=== PATIENT | male | born 1955 | race Caucasian/White ===

== ENCOUNTER 2018-12-15 07:13 | Observation (INO) | payer MEDICARE, OTHER ==
[2018-12-15] MEDS ORDERED: Sodium Chloride 0.9% 2.5 ML Syringe FLUSH PRN (07:34)
[2018-12-15] MEDS ORDERED: Sodium Chloride 0.9% 10 ML Syringe FLUSH PRN (07:34)
[2018-12-15] MEDS ORDERED: Sodium Chloride 0.9% 10 ML SDV IV PRN (07:34)
--- NOTE | 2018-12-15 07:55 | EDM.PDOC ---
ED HPI GENERAL MEDICAL PROBLEM - General Chief Complaint: General Stated Complaint: VISION BLURRY, BLOOD PRESSURE ISSUES Time Seen by Provider: 12/15/18 07:18 Source of Information: Reports: Patient History Limitations: Reports: No Limitations - History of Present Illness INITIAL COMMENTS - FREE TEXT/NARRATIVE: History of present illness: []Patient woke up this morning with double vision. He has had some blurry vision since he started metoprolol this month and states worsening. He feels weakness in both his upper arms and states he generally feels unwell and "not right". He denies any trauma, nausea, vomiting, fevers, chills, chest pain or shortness of breath. Patient has not had these symptoms in the past and states he has never had a EIA or stroke. Review of systems: As per history of present illness and below otherwise all systems reviewed and negative. Past medical history: As per history of present illness and as reviewed below otherwise noncontributory. Surgical history: As per history of present illness and as reviewed below otherwise noncontributory. Social history: No reported history of drug or alcohol abuse. Family history: As per history of present illness and as reviewed below otherwise noncontributory. Physical exam: General: Well developed, well nourished in NAD HEENT: Atraumatic, normocephalic, pupils reactive, negative for conjunctival pallor or scleral icterus, mucous membranes moist, throat clear, neck supple, nontender, trachea midline. Lungs: Clear to auscultation, breath sounds equal bilaterally, chest nontender. Heart: S1S2, regular, negative for clicks, rubs, or JVD. Abdomen: NABS, Soft, nondistended, nontender. Negative for masses or hepatosplenomegaly. Negative for costovertebral tenderness. Pelvis: Stable nontender. Genitourinary: Deferred. Rectal: Deferred. Extremities: Atraumatic, negative for cords or calf pain. Neurovascular unremarkable. Neuro: Awake, alert, oriented. patient has a right sixth nerve palsy, Cerebellum unremarkable. Motor and sensory unremarkable throughout. Exam nonfocal. Skin:warm and dry Diagnostics: CT head, CBC, EKG, chemistry, troponin, TSH Therapeutics: None ED Course: Dr. Flood who recommended that he be admitted for an MRI and observation Impression: Right sixth nerve palsy-unknown etiology Prescriptions: None Plan: Admit to hospitalist service for further workup Definitive disposition and diagnosis as appropriate pending reevaluation and review of above. - Related Data Allergies Allergy/AdvReac Type Severity Reaction Status Date / Time No Known Allergies Allergy Verified 12/15/18 09:36 Home Meds: Home Meds Aspirin 81 mg PO BEDTIME 12/15/18 [History] Metoprolol Succinate [Toprol XL] 25 mg PO BEDTIME 12/15/18 [History] Quinapril [Accupril] 20 mg PO BEDTIME 12/15/18 [History] Simvastatin [Zocor] 40 mg PO BEDTIME 12/15/18 [History] Past Medical History HEENT History: Reports: None Cardiovascular History: Reports: High Cholesterol, Hypertension Respiratory History: Reports: None Gastrointestinal History: Reports: None Genitourinary History: Reports: None Musculoskeletal History: Reports: None Neurological History: Reports: None Psychiatric History: Reports: None Endocrine/Metabolic History: Reports: None Hematologic History: Reports: None Immunologic History: Reports: None Oncologic (Cancer) History: Reports: None Dermatologic History: Reports: None - Infectious Disease History Infectious Disease History: Reports: Chicken Pox - Past Surgical History Head Surgeries/Procedures: Reports: None Social & Family History - Tobacco Use Smoking Status *Q: Current Every Day Smoker Years of Tobacco use: 47 Packs/Tins Daily: 0.3 - Caffeine Use Caffeine Use: Reports: Coffee - Recreational Drug Use Recreational Drug Use: No ED ROS GENERAL - Review of Systems Review Of Systems: See Below ED EXAM, GENERAL - Physical Exam Exam: See Below Course - Vital Signs Last Recorded V/S: Last Vital Signs Temp 97.4 F 12/15/18 09:33 Pulse 67 12/15/18 09:33 Resp 16 12/15/18 09:33 BP 141/86 H 12/15/18 09:33 Pulse Ox 97 12/15/18 10:16 - Orders/Labs/Meds Orders: Active Orders 24 hr Category Date Time Status Patient Status [ADT] Stat ADT 12/15/18 08:29 Active Assess Neurological Status [RC] ASDIRECTED Care 12/15/18 07:34 Active EKG Documentation Completion [RC] STAT Care 12/15/18 07:34 Active Height and Weight [RC] UPON Care 12/15/18 07:34 Active Initiate Acute Stroke Protocol [RC] STAT Care 12/15/18 07:34 Active NIH Stroke Scale [RC] ASDIRECTED Care 12/15/18 07:34 Active Nursing Bedside Swallow Screen [RC] ASDIRECTED Care 12/15/18 07:34 Active Oxygen Therapy [RC] ASDIRECTED Care 12/15/18 07:34 Active Stroke Education, General [] Click to Edit Care 12/15/18 07:34 Active Sodium Chloride 0.9% [Normal Saline] Med 12/15/18 07:34 Active 10 ml IV ASDIRECTED PRN Sodium Chloride 0.9% [Saline Flush] Med 12/15/18 07:34 Active 10 ml FLUSH ASDIRECTED PRN Sodium Chloride 0.9% [Saline Flush] Med 12/15/18 07:34 Active 2.5 ml FLUSH ASDIRECTED PRN Peripheral IV Insertion Adult [OM.PC] Stat Oth 12/15/18 07:34 Ordered Peripheral IV Insertion Adult [OM.PC] Stat Oth 12/15/18 07:34 Ordered Medication Orders Acetaminophen (Tylenol) 650 mg PO Q4H PRN PRN Reason: Pain (Mild 1-3)/fever Atorvastatin Calcium (Lipitor) 40 mg PO BEDTIME RAYNA Morphine Sulfate (Morphine) 2 mg IVPUSH Q2H PRN PRN Reason: Pain (severe 7-10) Stop: 12/16/18 09:16 Ondansetron HCl (Zofran Odt) 4 mg PO Q4H PRN PRN Reason: nausea, able to take PO Ondansetron HCl (Zofran) 4 mg IVPUSH Q4H PRN PRN Reason: Nausea Sodium Chloride (Saline Flush) 10 ml FLUSH ASDIRECTED PRN PRN Reason: Keep Vein Open Sodium Chloride (Saline Flush) 2.5 ml FLUSH ASDIRECTED PRN PRN Reason: Keep Vein Open Sodium Chloride (Normal Saline) 10 ml IV ASDIRECTED PRN PRN Reason: IV Use Labs: Laboratory Tests 12/15/18 12/15/18 12/15/18 Range/Units 07:58 07:58 07:58 WBC 8.73 (4.0-11.0) K/uL RBC 5.54 (4.50-5.90) M/uL Hgb 16.6 (13.0-17.0) g/dL Hct 49.4 (38.0-50.0) % MCV 89.2 (80.0-98.0) fL MCH 30.0 (27.0-32.0) pg MCHC 33.6 (31.0-37.0) g/dL RDW Std Deviation 46.7 (28.0-62.0) fl RDW Coeff of Yue 14 (11.0-15.0) % Plt Count 189 (150-400) K/uL MPV 11.00 (7.40-12.00) fL Neut % (Auto) 69.2 (48.0-80.0) % Lymph % (Auto) 21.2 (16.0-40.0) % [facility] % (Auto) 8.4 (0.0-15.0) % Eos % (Auto) 1.0 (0.0-7.0) % Baso % (Auto) 0.2 (0.0-1.5) % Neut # (Auto) 6.0 H (1.4-5.7) K/uL Lymph # (Auto) 1.9 (0.6-2.4) K/uL [facility] # (Auto) 0.7 (0.0-0.8) K/uL Eos # (Auto) 0.1 (0.0-0.7) K/uL Baso # (Auto) 0.0 (0.0-0.1) K/uL Nucleated RBC % 0.0 /100WBC Nucleated RBCs # 0 K/uL ESR (0-19) mm/hr INR 0.97 APTT 25.9 (18.6-31.3) SEC Sodium 145 (136-148) mmol/L Potassium 4.2 (3.5-5.1) mmol/L Chloride 109 H (98-107) mmol/L Carbon Dioxide 25.7 (21.0-32.0) mmol/L BUN 16 (7.0-18.0) mg/dL Creatinine 1.3 (0.8-1.3) mg/dL Est Cr Clr Drug Dosing TNP Estimated GFR (MDRD) 55.4 ml/min Glucose 127 H (74-106) mg/dL Hemoglobin A1c (4.5-6.2) % Calcium 8.6 (8.5-10.1) mg/dL Total Bilirubin 0.7 (0.2-1.0) mg/dL AST 17 (15-37) IU/L ALT 26 (14-63) IU/L Alkaline Phosphatase 75 (46-116) U/L Troponin I < 0.050 (0.000-0.056) ng/mL C-Reactive Protein (0.00-0.90) mg/dL Total Protein 7.1 (6.4-8.2) g/dL Albumin 3.7 (3.4-5.0) g/dL Globulin 3.4 (2.6-4.0) g/dL Albumin/Globulin Ratio 1.1 (0.9-1.6) Triglycerides (0-200) mg/dL Cholesterol (50-200) mg/dL LDL Cholesterol, Calc (60-180) mg/dL VLDL Cholesterol (5-55) mg/dL HDL Cholesterol (40-60) mg/dL Cholesterol/HDL Ratio (3.3-6.0) TSH 3rd Generation 3.12 (0.36-3.74) uIU/mL 12/15/18 12/15/18 12/15/18 Range/Units 07:58 07:58 07:58 WBC (4.0-11.0) K/uL RBC (4.50-5.90) M/uL Hgb (13.0-17.0) g/dL Hct (38.0-50.0) % MCV (80.0-98.0) fL MCH (27.0-32.0) pg MCHC (31.0-37.0) g/dL RDW Std Deviation (28.0-62.0) fl RDW Coeff of Yue (11.0-15.0) % Plt Count (150-400) K/uL MPV (7.40-12.00) fL Neut % (Auto) (48.0-80.0) % Lymph % (Auto) (16.0-40.0) % [facility] % (Auto) (0.0-15.0) % Eos % (Auto) (0.0-7.0) % Baso % (Auto) (0.0-1.5) % Neut # (Auto) (1.4-5.7) K/uL Lymph # (Auto) (0.6-2.4) K/uL [facility] # (Auto) (0.0-0.8) K/uL Eos # (Auto) (0.0-0.7) K/uL Baso # (Auto) (0.0-0.1) K/uL Nucleated RBC % /100WBC Nucleated RBCs # K/uL ESR 3 (0-19) mm/hr INR APTT (18.6-31.3) SEC Sodium (136-148) mmol/L Potassium (3.5-5.1) mmol/L Chloride (98-107) mmol/L Carbon Dioxide (21.0-32.0) mmol/L BUN (7.0-18.0) mg/dL Creatinine (0.8-1.3) mg/dL Est Cr Clr Drug Dosing Estimated GFR (MDRD) ml/min Glucose (74-106) mg/dL Hemoglobin A1c 5.9 (4.5-6.2) % Calcium (8.5-10.1) mg/dL Total Bilirubin (0.2-1.0) mg/dL AST (15-37) IU/L ALT (14-63) IU/L Alkaline Phosphatase (46-116) U/L Troponin I (0.000-0.056) ng/mL C-Reactive Protein (0.00-0.90) mg/dL Total Protein (6.4-8.2) g/dL Albumin (3.4-5.0) g/dL Globulin (2.6-4.0) g/dL Albumin/Globulin Ratio (0.9-1.6) Triglycerides 126 (0-200) mg/dL Cholesterol 135 (50-200) mg/dL LDL Cholesterol, Calc 79 (60-180) mg/dL VLDL Cholesterol 25 (5-55) mg/dL HDL Cholesterol 31 L (40-60) mg/dL Cholesterol/HDL Ratio 4.4 (3.3-6.0) TSH 3rd Generation (0.36-3.74) uIU/mL 12/15/18 Range/Units 07:58 WBC (4.0-11.0) K/uL RBC (4.50-5.90) M/uL Hgb (13.0-17.0) g/dL Hct (38.0-50.0) % MCV (80.0-98.0) fL MCH (27.0-32.0) pg MCHC (31.0-37.0) g/dL RDW Std Deviation (28.0-62.0) fl RDW Coeff of Yue (11.0-15.0) % Plt Count (150-400) K/uL MPV (7.40-12.00) fL Neut % (Auto) (48.0-80.0) % Lymph % (Auto) (16.0-40.0) % [facility] % (Auto) (0.0-15.0) % Eos % (Auto) (0.0-7.0) % Baso % (Auto) (0.0-1.5) % Neut # (Auto) (1.4-5.7) K/uL Lymph # (Auto) (0.6-2.4) K/uL [facility] # (Auto) (0.0-0.8) K/uL Eos # (Auto) (0.0-0.7) K/uL Baso # (Auto) (0.0-0.1) K/uL Nucleated RBC % /100WBC Nucleated RBCs # K/uL ESR (0-19) mm/hr INR APTT (18.6-31.3) SEC Sodium (136-148) mmol/L Potassium (3.5-5.1) mmol/L Chloride (98-107) mmol/L Carbon Dioxide (21.0-32.0) mmol/L BUN (7.0-18.0) mg/dL Creatinine (0.8-1.3) mg/dL Est Cr Clr Drug Dosing Estimated GFR (MDRD) ml/min Glucose (74-106) mg/dL Hemoglobin A1c (4.5-6.2) % Calcium (8.5-10.1) mg/dL Total Bilirubin (0.2-1.0) mg/dL AST (15-37) IU/L ALT (14-63) IU/L Alkaline Phosphatase (46-116) U/L Troponin I (0.000-0.056) ng/mL C-Reactive Protein 0.40 (0.00-0.90) mg/dL Total Protein (6.4-8.2) g/dL Albumin (3.4-5.0) g/dL Globulin (2.6-4.0) g/dL Albumin/Globulin Ratio (0.9-1.6) Triglycerides (0-200) mg/dL Cholesterol (50-200) mg/dL LDL Cholesterol, Calc (60-180) mg/dL VLDL Cholesterol (5-55) mg/dL HDL Cholesterol (40-60) mg/dL Cholesterol/HDL Ratio (3.3-6.0) TSH 3rd Generation (0.36-3.74) uIU/mL Meds: Medications Generic Name Dose Route Start Last Admin Trade Name Yancy PRN Reason Stop Dose Admin Acetaminophen 650 mg 12/15/18 09:13 Tylenol PO Q4H PRN Pain (Mild 1-3)/fever Atorvastatin Calcium 40 mg 12/15/18 21:00 Lipitor PO BEDTIME RAYNA Morphine Sulfate 2 mg 12/15/18 09:13 Morphine IVPUSH 12/16/18 09:16 Q2H PRN Pain (severe 7-10) Ondansetron HCl 4 mg 12/15/18 09:13 Zofran Odt PO Q4H PRN nausea, able to take PO Ondansetron HCl 4 mg 12/15/18 09:13 Zofran IVPUSH Q4H PRN Nausea Sodium Chloride 10 ml 12/15/18 07:34 Saline Flush FLUSH ASDIRECTED PRN Keep Vein Open Sodium Chloride 2.5 ml 12/15/18 07:34 Saline Flush FLUSH ASDIRECTED PRN Keep Vein Open Sodium Chloride 10 ml 12/15/18 07:34 Normal Saline IV ASDIRECTED PRN IV Use Discontinued Medications Generic Name Dose Route Start Last Admin Trade Name Yancy PRN Reason Stop Dose Admin Aspirin 325 mg 12/15/18 09:17 12/15/18 09:44 Aspirin PO 12/15/18 09:18 325 mg ONETIME ONE Administration Departure - Departure Time of Disposition: 09:25 Disposition: Refer to Observation Condition: Good Clinical Impression: Double vision with both eyes open - Discharge Information *PRESCRIPTION DRUG MONITORING PROGRAM REVIEWED*: No *COPY OF PRESCRIPTION DRUG MONITORING REPORT IN PATIENT ANN: No - My Orders Last 24 Hours: My Active Orders 12/15/18 07:34 Assess Neurological Status [RC] ASDIRECTED EKG Documentation Completion [RC] STAT Height and Weight [RC] UPON Initiate Acute Stroke Protocol [RC] STAT NIH Stroke Scale [RC] ASDIRECTED Nursing Bedside Swallow Screen [RC] ASDIRECTED Oxygen Therapy [RC] ASDIRECTED Stroke Education, General [RC] Click to Edit Sodium Chloride 0.9% [Normal Saline] 10 ml IV ASDIRECTED PRN Sodium Chloride 0.9% [Saline Flush] 10 ml FLUSH ASDIRECTED PRN Sodium Chloride 0.9% [Saline Flush] 2.5 ml FLUSH ASDIRECTED PRN Peripheral IV Insertion Adult [OM.PC] Stat Peripheral IV Insertion Adult [OM.PC] Stat 12/15/18 08:29 Patient Status [ADT] Stat - Assessment/Plan Last 24 Hours: My Active Orders 12/15/18 07:34 Assess Neurological Status [RC] ASDIRECTED EKG Documentation Completion [RC] STAT Height and Weight [RC] UPON Initiate Acute Stroke Protocol [RC] STAT NIH Stroke Scale [RC] ASDIRECTED Nursing Bedside Swallow Screen [RC] ASDIRECTED Oxygen Therapy [RC] ASDIRECTED Stroke Education, General [RC] Click to Edit Sodium Chloride 0.9% [Normal Saline] 10 ml IV ASDIRECTED PRN Sodium Chloride 0.9% [Saline Flush] 10 ml FLUSH ASDIRECTED PRN Sodium Chloride 0.9% [Saline Flush] 2.5 ml FLUSH ASDIRECTED PRN Peripheral IV Insertion Adult [OM.PC] Stat Peripheral IV Insertion Adult [OM.PC] Stat 12/15/18 08:29 Patient Status [ADT] Stat
--- NOTE | 2018-12-15 07:58 | CT ---
INDICATION: Blurry vision. Stroke protocol. TECHNIQUE: CT head without contrast. COMPARISON: None. FINDINGS: CSF spaces: Prominence of the bilateral frontal extra-axial space which could be due to volume loss, or perhaps chronic subdural collection. Brain parenchyma: The whitney-white differentiation is normal. No sign of mass, hemorrhage, or midline shift. Skull base and calvarium: Right maxillary sinus mucous retention cyst/polyp. Mild mucosal thickening within the ethmoid sinus. Remainder of the imaged paranasal sinuses and mastoid air cells are unremarkable. The visualized orbits are grossly unremarkable. No skull fractures. IMPRESSION: Prominence of the bilateral frontal extra-axial space which could be due to volume loss or perhaps chronic subdural collection. Otherwise no acute intracranial abnormality. Please note that CT of the head can be insensitive for early detection of ischemia. Consider short-term follow-up CT or MRI if clinically indicated. Please note that all CT scans at this facility use dose modulation, iterative reconstruction, and/or weight-based dosing when appropriate to reduce radiation dose to as low as reasonably achievable. Dictated by Mendel Tomas MD @ Dec 15 2018 7:53AM Signed by Dr. Mendel Tomas @ Dec 15 2018 7:57AM
[2018-12-15 08:42] LABS: BLOOD UREA NITROGEN,BUN 16 mg/dL (7.0-18.0); CARBON DIOXIDE,CO2 25.7 mmol/L (21.0-32.0); CHLORIDE,CL 109 mmol/L (98-107); GLUCOSE RANDOM 127 mg/dL (74-106); POTASSIUM,K 4.2 mmol/L (3.5-5.1); SODIUM,NA 145 mmol/L (136-148)
[2018-12-15] MEDS ORDERED: Acetaminophen 325 MG Tab PO PRN (09:13)
[2018-12-15] MEDS ORDERED: Ondansetron 4 MG/2 ML SDV IVPUSH PRN (09:13)
[2018-12-15] MEDS ORDERED: Morphine 10 MG/ML Syringe IVPUSH PRN (09:13)
[2018-12-15] MEDS ORDERED: Ondansetron 4 MG Tab.DIS PO PRN (09:13)
[2018-12-15] MEDS ORDERED: Aspirin 325 MG Tab PO ONE (09:17)
--- NOTE | 2018-12-15 09:36 | PCM.HP.2 ---
H&P History of Present Illness - General Date of Service: 12/15/18 Admit Problem/Dx: Admission Diagnosis/Problem Admission Diagnosis/Problem Double vision with both eyes open - History of Present Illness Initial Comments - Free Text/Narative: 63 y/o male presenting to the ER complaining of blurry vision. Patient states that approximately around 4 am he woke up to go to the bathroom and that's when he noticed that his vision was blurry. States that his blurry vision is on his right eye. Denies any trauma or procedures to eyes. No falls. Denies any headaches, nausea, vomiting. No eye pain. No chest pain ,dyspnea, abdominal pain, no loss or strength in his extremities. In the ER, CT head was negative for any intracranial hemorrhage. It did show bilateral frontal extra-axial prominence which could be due to volume loss or chronic subdural collection. When I examined the patient, he was in no acute distress. Endorses right eye blurry vision but improving. No pain, floaters. His CN 2-12 grossly intact. No sensation or strength deficits in his upper or lower extremities. - Related Data Allergies/Adverse Reactions: Allergies Allergy/AdvReac Type Severity Reaction Status Date / Time No Known Allergies Allergy Verified 12/15/18 09:36 Home Medications: Home Meds Aspirin 81 mg PO BEDTIME 12/15/18 [History] Metoprolol Succinate [Toprol XL] 25 mg PO BEDTIME 12/15/18 [History] Quinapril [Accupril] 20 mg PO BEDTIME 12/15/18 [History] Simvastatin [Zocor] 40 mg PO BEDTIME 12/15/18 [History] Past Medical History HEENT History: Reports: None Cardiovascular History: Reports: High Cholesterol, Hypertension Respiratory History: Reports: None Gastrointestinal History: Reports: None Genitourinary History: Reports: None Musculoskeletal History: Reports: None Neurological History: Reports: None Psychiatric History: Reports: None Endocrine/Metabolic History: Reports: None Hematologic History: Reports: None Immunologic History: Reports: None Oncologic (Cancer) History: Reports: None Dermatologic History: Reports: None - Infectious Disease History Infectious Disease History: Reports: Chicken Pox - Past Surgical History Head Surgeries/Procedures: Reports: None Social & Family History - Tobacco Use Smoking Status *Q: Current Every Day Smoker Years of Tobacco use: 47 Packs/Tins Daily: 0.3 - Caffeine Use Caffeine Use: Reports: Coffee - Recreational Drug Use Recreational Drug Use: No H&P Review of Systems - Review of Systems: Review Of Systems: ROS reveals no pertinent complaints other than HPI. Exam - Exam Exam: See Below - Vital Signs Vital Signs: Last Vital Signs Temp 36.3 C 12/15/18 09:33 Pulse 67 12/15/18 09:33 Resp 16 12/15/18 09:33 BP 141/86 H 12/15/18 09:33 Pulse Ox 97 12/15/18 09:33 Weight: 103 kg - Exam General: Alert, Oriented, Cooperative HEENT: Conjunctiva Clear, EOMI, Mucosa Moist & Hiller, Pupils Equal, Pupils Reactive Lungs: Clear to Auscultation, Normal Respiratory Effort Cardiovascular: Regular Rate, Regular Rhythm GI/Abdominal Exam: Normal Bowel Sounds, Soft, Non-Tender, No Distention Extremities: Normal Inspection, Non-Tender, No Pedal Edema Skin: Warm, Dry Neurological: Cranial Nerves Intact, Reflexes Equal Bilateral, Strength Equal Bilateral, Normal Gait, Normal Speech, Sensation Intact Neuro Extensive - Mental Status: Alert, Oriented x3 - Patient Data Lab Results Last 24 hrs: Laboratory Results - last 24 hr 12/15/18 12/15/18 12/15/18 Range/Units 07:58 07:58 07:58 WBC 8.73 (4.0-11.0) K/uL RBC 5.54 (4.50-5.90) M/uL Hgb 16.6 (13.0-17.0) g/dL Hct 49.4 (38.0-50.0) % MCV 89.2 (80.0-98.0) fL MCH 30.0 (27.0-32.0) pg MCHC 33.6 (31.0-37.0) g/dL RDW Std Deviation 46.7 (28.0-62.0) fl RDW Coeff of Yue 14 (11.0-15.0) % Plt Count 189 (150-400) K/uL MPV 11.00 (7.40-12.00) fL Neut % (Auto) 69.2 (48.0-80.0) % Lymph % (Auto) 21.2 (16.0-40.0) % Rains % (Auto) 8.4 (0.0-15.0) % Eos % (Auto) 1.0 (0.0-7.0) % Baso % (Auto) 0.2 (0.0-1.5) % Neut # (Auto) 6.0 H (1.4-5.7) K/uL Lymph # (Auto) 1.9 (0.6-2.4) K/uL Rains # (Auto) 0.7 (0.0-0.8) K/uL Eos # (Auto) 0.1 (0.0-0.7) K/uL Baso # (Auto) 0.0 (0.0-0.1) K/uL Nucleated RBC % 0.0 /100WBC Nucleated RBCs # 0 K/uL INR 0.97 APTT 25.9 (18.6-31.3) SEC Sodium 145 (136-148) mmol/L Potassium 4.2 (3.5-5.1) mmol/L Chloride 109 H (98-107) mmol/L Carbon Dioxide 25.7 (21.0-32.0) mmol/L BUN 16 (7.0-18.0) mg/dL Creatinine 1.3 (0.8-1.3) mg/dL Est Cr Clr Drug Dosing TNP Estimated GFR (MDRD) 55.4 ml/min Glucose 127 H (74-106) mg/dL Calcium 8.6 (8.5-10.1) mg/dL Total Bilirubin 0.7 (0.2-1.0) mg/dL AST 17 (15-37) IU/L ALT 26 (14-63) IU/L Alkaline Phosphatase 75 (46-116) U/L Troponin I < 0.050 (0.000-0.056) ng/mL Total Protein 7.1 (6.4-8.2) g/dL Albumin 3.7 (3.4-5.0) g/dL Globulin 3.4 (2.6-4.0) g/dL Albumin/Globulin Ratio 1.1 (0.9-1.6) TSH 3rd Generation 3.12 (0.36-3.74) uIU/mL Result Diagrams: 12/15/18 07:58 12/15/18 07:58 Problem List Initiated/Reviewed/Updated: Yes Orders Last 24hrs: Active Orders 24 hr Category Date Time Status Patient Status [ADT] Stat ADT 12/15/18 08:29 Active Assess Neurological Status [RC] ASDIRECTED Care 12/15/18 07:34 Active Bedrest Bedside Commode [RC] ASDIRECTED Care 12/15/18 09:13 Active Bedrest [RC] ASDIRECTED Care 12/15/18 07:34 Active Cardiac Monitoring [RC] . DIRECTED Care 12/15/18 07:34 Active EKG Documentation Completion [RC] STAT Care 12/15/18 07:34 Active Height and Weight [RC] UPON Care 12/15/18 07:34 Active Initiate Acute Stroke Protocol [RC] STAT Care 12/15/18 07:34 Active Intake and Output [RC] QSHIFT Care 12/15/18 09:13 Active NIH Stroke Scale [RC] ASDIRECTED Care 12/15/18 07:34 Active Nursing Bedside Swallow Screen [RC] ASDIRECTED Care 12/15/18 07:34 Active Oxygen Therapy [RC] ASDIRECTED Care 12/15/18 07:34 Active Oxygen Therapy [RC] PRN Care 12/15/18 09:13 Active Stroke Education, General [RC] Click to Edit Care 12/15/18 07:34 Active Telemetry Monitoring [Cardiac Monitoring] [RC] . Care 12/15/18 09:25 Active DIRECTED VTE/DVT Education [RC] PER UNIT ROUTINE Care 12/15/18 09:13 Active Vital Signs [RC] Q15M Care 12/15/18 07:34 Active Consult to Physical Therapy [PT Evaluation and Cons 12/15/18 09:23 Active Treatment] [CONS] Routine Heart Healthy Diet [DIET] Diet 12/15/18 Breakfast Active Ang Head w wo Cont [MR] Urgent Exams 12/15/18 09:20 Ordered Ang Head wo Cont [MR] Routine Exams 12/15/18 09:18 Stop Req Ang Neck w wo Cont [MR] Routine Exams 12/15/18 09:20 Ordered Echo Comp wo Cont [US] Routine Exams 12/15/18 09:28 Ordered MRA Neck Without Contrast [Ang Neck wo Cont] [MR] Exams 12/15/18 09:18 Stop Req Routine CBC WITH AUTO DIFF [HEME] AM Lab 12/16/18 05:11 Ordered COMPREHENSIVE METABOLIC PN,CMP [CHEM] AM Lab 12/16/18 05:11 Ordered CRP [C-REACTIVE PROTEIN] [CHEM] Routine Lab 12/15/18 09:34 Ordered ESR [SEDIMENTATION RATE AUTO] [HEME] Routine Lab 12/15/18 07:58 Received GLYCOSYLATED HEMOGLOBIN,HGBA1C [CHEM] Routine Lab 12/15/18 07:58 Received LIPID PANEL [CHEM] Routine Lab 12/15/18 07:58 Received Acetaminophen [Tylenol] Med 12/15/18 09:13 Active 650 mg PO Q4H PRN Morphine Med 12/15/18 09:13 Active 2 mg IVPUSH Q2H PRN Ondansetron [Zofran ODT] Med 12/15/18 09:13 Active 4 mg PO Q4H PRN Ondansetron [Zofran] Med 12/15/18 09:13 Active 4 mg IVPUSH Q4H PRN Sodium Chloride 0.9% [Normal Saline] Med 12/15/18 07:34 Active 10 ml IV ASDIRECTED PRN Sodium Chloride 0.9% [Saline Flush] Med 12/15/18 07:34 Active 10 ml FLUSH ASDIRECTED PRN Sodium Chloride 0.9% [Saline Flush] Med 12/15/18 07:34 Active 2.5 ml FLUSH ASDIRECTED PRN atorvaSTATin [Lipitor] Med 12/15/18 21:00 Active 40 mg PO BEDTIME Peripheral IV Insertion Adult [OM.PC] Stat Oth 12/15/18 07:34 Ordered Peripheral IV Insertion Adult [OM.PC] Stat Oth 12/15/18 07:34 Ordered Resuscitation Status Routine Resus Stat 12/15/18 09:13 Ordered Medication Orders Acetaminophen (Tylenol) 650 mg PO Q4H PRN PRN Reason: Pain (Mild 1-3)/fever Atorvastatin Calcium (Lipitor) 40 mg PO BEDTIME RAYNA Morphine Sulfate (Morphine) 2 mg IVPUSH Q2H PRN PRN Reason: Pain (severe 7-10) Stop: 12/16/18 09:16 Ondansetron HCl (Zofran Odt) 4 mg PO Q4H PRN PRN Reason: nausea, able to take PO Ondansetron HCl (Zofran) 4 mg IVPUSH Q4H PRN PRN Reason: Nausea Sodium Chloride (Saline Flush) 10 ml FLUSH ASDIRECTED PRN PRN Reason: Keep Vein Open Sodium Chloride (Saline Flush) 2.5 ml FLUSH ASDIRECTED PRN PRN Reason: Keep Vein Open Sodium Chloride (Normal Saline) 10 ml IV ASDIRECTED PRN PRN Reason: IV Use Assessment/Plan Comment:: A: 1. Right blurry vision P: 1. Dr. Flood has been consulted. Appreciate recs. Will get MRA head and neck in addition to MRV head to better assess vasculature into the eye and any acute ischemic findings. Aspirin 81 mg PO daily, check ESR, CRP. Checking HgA1c , lipid panel. For now, will monitor blood pressure. He will need to follow-up with ophthalmology as outpatient. Dispo: 1-2 days.
[2018-12-15 10:04] LABS: HEMOGLOBIN A1C 5.9 % (4.5-6.2)
--- NOTE | 2018-12-15 10:07 | PCM.CONS ---
H&P History of Present Illness - General Date of Service: 12/15/18 Admit Problem/Dx: Admission Diagnosis/Problem Admission Diagnosis/Problem Double vision with both eyes open - History of Present Illness Initial Comments - Free Text/Narative: When he went to bed last night, he was in usual state of health. At 4:30 am, when he woke up, he felt dizzy, off. He notes that the room was spinning and felt off balance. He notes double vision and blurry vision in his right eye. He notes now that he feels dizzy if he looks to the right but not the left. He denies headaches or eye pain. He takes a daily ASA. No history of MD, stroke, vascular disease. He does have HTN and hyperlipidemia. He uses tobacco. - Related Data Allergies/Adverse Reactions: Allergies Allergy/AdvReac Type Severity Reaction Status Date / Time No Known Allergies Allergy Verified 12/15/18 09:36 Home Medications: Home Meds Aspirin 81 mg PO BEDTIME 12/15/18 [History] Metoprolol Succinate [Toprol XL] 25 mg PO BEDTIME 12/15/18 [History] Quinapril [Accupril] 20 mg PO BEDTIME 12/15/18 [History] Simvastatin [Zocor] 40 mg PO BEDTIME 12/15/18 [History] Past Medical History HEENT History: Reports: None Cardiovascular History: Reports: High Cholesterol, Hypertension Respiratory History: Reports: None Gastrointestinal History: Reports: None Genitourinary History: Reports: None Musculoskeletal History: Reports: None Neurological History: Reports: None Psychiatric History: Reports: None Endocrine/Metabolic History: Reports: None Hematologic History: Reports: None Immunologic History: Reports: None Oncologic (Cancer) History: Reports: None Dermatologic History: Reports: None - Infectious Disease History Infectious Disease History: Reports: Chicken Pox - Past Surgical History Head Surgeries/Procedures: Reports: None Social & Family History - Family History Family Medical History: Noncontributory - Tobacco Use Smoking Status *Q: Current Every Day Smoker Years of Tobacco use: 45 Packs/Tins Daily: 0.5 - Caffeine Use Caffeine Use: Reports: Coffee, Tea - Recreational Drug Use Recreational Drug Use: No H&P Review of Systems - Review of Systems: Review Of Systems: ROS reveals no pertinent complaints other than HPI. Exam - Exam Exam: See Below - Vital Signs Vital Signs: Last Vital Signs Temp 36.3 C 12/15/18 09:33 Pulse 67 12/15/18 09:33 Resp 16 12/15/18 09:33 BP 141/86 H 12/15/18 09:33 Pulse Ox 97 12/15/18 09:33 Weight: 101.786 kg - Exam Physical Exam Comments:: Constitutional: No acute distress Psychiatric: Mood/Affect: normal/appropriate Neurological: Mental Status: General: Normal activity, good hygiene, appropriate appearance. Level of consciousness: Awake, alert. Orientation: Oriented to person, place, time and situation. Concentration/Attention Span: Normal. Comprehension/Praxis: Able to perform a three step command. Fund of Knowledge/memory: Adequate recent and remote recall. Language: Fluent and articulate without evidence of aphasia or dysarthria. Thought Content: Normal. Insight/Judgement: Normal. Cranial Nerves: Pupils equally round and reactive to light. Visual cox full to confrontation. Right eye abduction moderate reduced, right deviates slightly medially with upgaze. Sensation intact and symmetric to light touch. Facial strength is full and symmetric. Palate elevates symmetrically. Normal shrug bilaterally. Tongue protrudes midline Motor: Normal tone in all groups. No drift. Power is 5/5 throughout proximal and distal muscles. Sensation: Sensation is intact to temp ankles and dorsal hands. Deep tendon reflexes: Diminished throughout. Coordination: Finger to nose, heel to rios and rapid alternating movements are intact. Gait: Cautious gait. Eyes: non icteric, fundus not well visualized Mouth: moist mucus membranes Cardiovascular: RRR Respiratory: clear lungs GI: non tender Skin: no visible rash CT head prominent frontal extra axial space - Patient Data Lab Results Last 24 hrs: Laboratory Results - last 24 hr 12/15/18 12/15/18 12/15/18 Range/Units 07:58 07:58 07:58 WBC 8.73 (4.0-11.0) K/uL RBC 5.54 (4.50-5.90) M/uL Hgb 16.6 (13.0-17.0) g/dL Hct 49.4 (38.0-50.0) % MCV 89.2 (80.0-98.0) fL MCH 30.0 (27.0-32.0) pg MCHC 33.6 (31.0-37.0) g/dL RDW Std Deviation 46.7 (28.0-62.0) fl RDW Coeff of Yue 14 (11.0-15.0) % Plt Count 189 (150-400) K/uL MPV 11.00 (7.40-12.00) fL Neut % (Auto) 69.2 (48.0-80.0) % Lymph % (Auto) 21.2 (16.0-40.0) % [place] % (Auto) 8.4 (0.0-15.0) % Eos % (Auto) 1.0 (0.0-7.0) % Baso % (Auto) 0.2 (0.0-1.5) % Neut # (Auto) 6.0 H (1.4-5.7) K/uL Lymph # (Auto) 1.9 (0.6-2.4) K/uL [place] # (Auto) 0.7 (0.0-0.8) K/uL Eos # (Auto) 0.1 (0.0-0.7) K/uL Baso # (Auto) 0.0 (0.0-0.1) K/uL Nucleated RBC % 0.0 /100WBC Nucleated RBCs # 0 K/uL ESR (0-19) mm/hr INR 0.97 APTT 25.9 (18.6-31.3) SEC Sodium 145 (136-148) mmol/L Potassium 4.2 (3.5-5.1) mmol/L Chloride 109 H (98-107) mmol/L Carbon Dioxide 25.7 (21.0-32.0) mmol/L BUN 16 (7.0-18.0) mg/dL Creatinine 1.3 (0.8-1.3) mg/dL Est Cr Clr Drug Dosing TNP Estimated GFR (MDRD) 55.4 ml/min Glucose 127 H (74-106) mg/dL Calcium 8.6 (8.5-10.1) mg/dL Total Bilirubin 0.7 (0.2-1.0) mg/dL AST 17 (15-37) IU/L ALT 26 (14-63) IU/L Alkaline Phosphatase 75 (46-116) U/L Troponin I < 0.050 (0.000-0.056) ng/mL C-Reactive Protein (0.00-0.90) mg/dL Total Protein 7.1 (6.4-8.2) g/dL Albumin 3.7 (3.4-5.0) g/dL Globulin 3.4 (2.6-4.0) g/dL Albumin/Globulin Ratio 1.1 (0.9-1.6) TSH 3rd Generation 3.12 (0.36-3.74) uIU/mL 12/15/18 12/15/18 Range/Units 07:58 07:58 WBC (4.0-11.0) K/uL RBC (4.50-5.90) M/uL Hgb (13.0-17.0) g/dL Hct (38.0-50.0) % MCV (80.0-98.0) fL MCH (27.0-32.0) pg MCHC (31.0-37.0) g/dL RDW Std Deviation (28.0-62.0) fl RDW Coeff of Yue (11.0-15.0) % Plt Count (150-400) K/uL MPV (7.40-12.00) fL Neut % (Auto) (48.0-80.0) % Lymph % (Auto) (16.0-40.0) % [place] % (Auto) (0.0-15.0) % Eos % (Auto) (0.0-7.0) % Baso % (Auto) (0.0-1.5) % Neut # (Auto) (1.4-5.7) K/uL Lymph # (Auto) (0.6-2.4) K/uL [place] # (Auto) (0.0-0.8) K/uL Eos # (Auto) (0.0-0.7) K/uL Baso # (Auto) (0.0-0.1) K/uL Nucleated RBC % /100WBC Nucleated RBCs # K/uL ESR 3 (0-19) mm/hr INR APTT (18.6-31.3) SEC Sodium (136-148) mmol/L Potassium (3.5-5.1) mmol/L Chloride (98-107) mmol/L Carbon Dioxide (21.0-32.0) mmol/L BUN (7.0-18.0) mg/dL Creatinine (0.8-1.3) mg/dL Est Cr Clr Drug Dosing Estimated GFR (MDRD) ml/min Glucose (74-106) mg/dL Calcium (8.5-10.1) mg/dL Total Bilirubin (0.2-1.0) mg/dL AST (15-37) IU/L ALT (14-63) IU/L Alkaline Phosphatase (46-116) U/L Troponin I (0.000-0.056) ng/mL C-Reactive Protein 0.40 (0.00-0.90) mg/dL Total Protein (6.4-8.2) g/dL Albumin (3.4-5.0) g/dL Globulin (2.6-4.0) g/dL Albumin/Globulin Ratio (0.9-1.6) TSH 3rd Generation (0.36-3.74) uIU/mL Result Diagrams: 12/15/18 07:58 12/15/18 07:58 Consult PN Assessment/Plan (1) Diplopia SNOMED Code(s): 42537975 Code(s): H53.2 - DIPLOPIA Current Visit: Yes Assessment:: Acute onset right lateral rectus weakness/ 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 palsy. 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 Rec: MRI brain w contrast MRV head Problem List Initiated/Reviewed/Updated: Yes
--- NOTE | 2018-12-15 14:50 | MR ---
Dictation for this exam included within the brain MRI report from the same date. Dictated by Jhony Contreras MD @ Dec 15 2018 2:39PM Signed by Dr. Jhony Contreras @ Dec 15 2018 2:49PM
--- NOTE | 2018-12-15 14:50 | MR ---
TECHNIQUE: Technique should read brain MRI without contrast. No gadolinium administered. Dictated by Jhony Contreras MD @ Dec 15 2018 2:48PM Signed by Dr. Jhony Contreras @ Dec 15 2018 2:49PM
--- NOTE | 2018-12-15 14:57 | MR ---
INDICATION : Evaluate for dural venous sinus thrombosis. TECHNIQUE : Magnetic Resonance Venography of the head without contrast. 2D Inhance MRV. Reformats in multiple planes provided. Maximum Intensity Reconstructions are provided. FINDINGS: The superior sagittal sinus is widely patent. The straight sinus, vein of Sal and internal cerebral veins are patent. The inferior sagittal sinus is developmentally absent. The left internal jugular vein, sigmoid sinus and transverse dural venous sinus is widely patent. The right superior internal jugular vein, sigmoid sinus and transverse dural venous sinus is widely patent. Superior sagittal sinus drains to the right-sided transverse sinus. Deep venous system drains to left side transverse sinus. IMPRESSION: 1. No evidence of dural venous sinus thrombosis or focal stenosis. Dictated by Jhony Contreras MD @ Dec 15 2018 2:39PM Signed by Dr. Jhony Contreras @ Dec 15 2018 2:54PM
--- NOTE | 2018-12-15 16:22 | MR ---
INDICATION: Right-sided blurry vision. Evaluate infarction TECHNIQUE: Brain MRI without contrast. The following sequences were obtained: Sagittal T1 weighted sequence. DWI and ADC mapping sequences. Axial FLAIR, SWI and STEVENSON T2 weighted sequences. Magnetic Resonance Angiography of the head and neck without contrast. The following sequences were obtained: 3D Time of Flight Sequence of the intracranial circulation. 3D TOF and gadolinium bolus MRA of the neck with all measurements are based on NASCET criteria. Maximum Intensity Reconstructions are provided. COMPARISON: CT head from 12/15/2018. FINDINGS: MRI Head: No acute infarct or hemorrhage. Scattered T2 hyperintensities the supratentorial white matter and central brainstem are nonspecific but most represent chronic vessel ischemic disease and age related changes in a patient within this age category. There is mild frontal lobe volume loss. No mass effect or herniation. No hydrocephalus or extra-axial collections. The pituitary gland, parasellar structures and optic chiasm are normal. Posterior fossa is normal. The orbital contents are normal. No calvarial or skull base marrow signal abnormality. Scattered mild paranasal sinus mucosal thickening. No extracranial soft tissue findings. MRA Head: The anterior and middle cerebral arteries are widely patent. The posterior cerebral arteries are widely patent. The vertebral arteries and basilar artery are widely patent. The intracranial internal carotid arteries are widely patent. No aneurysm or vascular malformation. MRA Neck: Three vessel configuration of the aortic arch. Great vessels origins are widely patent. Proximal subclavian arteries are widely patent. Cervical carotid and vertebral arteries are widely patent, with no stenosis, occlusion or abnormal dilatation. IMPRESSION: 1. No acute intracranial abnormalities, including no evidence of acute infarction, intracranial hemorrhage, or mass effect. 2. Mild chronic small vessel ischemic disease within the supratentorial white matter. Mild frontal lobe volume loss. 3. No occlusion or hemodynamically significant stenosis of the intracranial or cervical arterial circulation. Dictated by Jhony Contreras MD @ Dec 15 2018 2:42PM Signed by: Jhony Contreras MD @12/15/2018 2:58:29 PM (Electronic Signature) MTDD
--- NOTE | 2018-12-15 16:27 | PCM.SN ---
- Free Text/Narrative Note: MRI brain and MRV showed no acute stroke, no venous sinus thrombosis. No contrast performed. Ischemia right CN 6th n. palsy remains most likely. Gradual improvement is expected, but I agree with outpatient ophtho referral.
--- NOTE | 2018-12-15 17:49 | PCM.DCSUM1 ---
Discharge Summary - Hospital Course Free Text/Narrative:: 63 y/o male with history of dyslipidemia, hypertension who presented to the ER complaining of double, blurry vision. In the ER, CT head was negative for any intracranial hemorrhage. He was admitted for stroke evaluation. MRA head and neck were negative for any ischemic findings. Dr. Flood, neurology was consulted who concluded that most likely symptoms were due to a right 6th cranial nerve palsy. Patient did not have any other neurological deficits. Was able to ambulate without difficulty. In addition, as time progressed, his vision was improving. ESR and CRP were unremarkable. Echo results pending. He was later discharged home with instructions to follow-up with Neurology, Ophthalmology and PCP. - Discharge Data Discharge Date: 12/15/18 Discharge Disposition: Home, Self-Care 01 Condition: Good - Referral to Home Health Primary Care Physician: Herbert Garcia MD - Patient Summary/Data Consults: Consultations 12/15/18 09:23 Consult to Physical Therapy [PT Evaluation and Treatment] [CONS] Routine - Patient Instructions Diet: Heart Healthy Diet Activity: As Tolerated, No Strenuous Activities, Rest and Relax Today Notify Provider of: Fever, Increased Pain, Swelling and Redness, Nausea and/or Vomiting Other/Special Instructions: Seek medical attention if vision gets worse or other neurological deficits appear. - Discharge Plan *PRESCRIPTION DRUG MONITORING PROGRAM REVIEWED*: No *COPY OF PRESCRIPTION DRUG MONITORING REPORT IN PATIENT ANN: No Home Medications: Home Meds Aspirin 81 mg PO BEDTIME 12/15/18 [History] Metoprolol Succinate [Toprol XL] 25 mg PO BEDTIME 12/15/18 [History] Quinapril [Accupril] 20 mg PO BEDTIME 12/15/18 [History] Simvastatin [Zocor] 40 mg PO BEDTIME 12/15/18 [History] Patient Handouts: Diplopia Referrals: Rayray Johnson [Ordering Only Provider] - (Please call Dr. Johnson's office on Tuesday, December 18, 2018 to arrange for 1-2 week outpatient week follow-up appointment.) Amelia Flood MD [Physician] - (Please call Dr. Flood's office on Tuesday to arrange for 1-2 week follow-up appointment.) Herbert Garcia MD [Primary Care Provider] - 01/02/19 10:30 am (You are on the waiting list for a sooner appointment. They will call you if one becomes available.) - Discharge Summary/Plan Comment DC Time >30 min.: No - Patient Data Vitals - Most Recent: Last Vital Signs Temp 36.4 C 12/15/18 16:00 Pulse 62 12/15/18 16:00 Resp 20 12/15/18 16:00 BP 147/71 H 12/15/18 16:00 Pulse Ox 96 12/15/18 16:00 Weight - Most Recent: 103 kg I&O - Last 24 hours: Intake & Output 12/15/18 12/15/18 12/15/18 06:59 14:59 22:59 Intake Total 800 Balance 800 Lab Results - Last 24 hrs: Laboratory Results - last 24 hr 12/15/18 12/15/18 12/15/18 Range/Units 07:58 07:58 07:58 WBC 8.73 (4.0-11.0) K/uL RBC 5.54 (4.50-5.90) M/uL Hgb 16.6 (13.0-17.0) g/dL Hct 49.4 (38.0-50.0) % MCV 89.2 (80.0-98.0) fL MCH 30.0 (27.0-32.0) pg MCHC 33.6 (31.0-37.0) g/dL RDW Std Deviation 46.7 (28.0-62.0) fl RDW Coeff of Yue 14 (11.0-15.0) % Plt Count 189 (150-400) K/uL MPV 11.00 (7.40-12.00) fL Neut % (Auto) 69.2 (48.0-80.0) % Lymph % (Auto) 21.2 (16.0-40.0) % [place] % (Auto) 8.4 (0.0-15.0) % Eos % (Auto) 1.0 (0.0-7.0) % Baso % (Auto) 0.2 (0.0-1.5) % Neut # (Auto) 6.0 H (1.4-5.7) K/uL Lymph # (Auto) 1.9 (0.6-2.4) K/uL [place] # (Auto) 0.7 (0.0-0.8) K/uL Eos # (Auto) 0.1 (0.0-0.7) K/uL Baso # (Auto) 0.0 (0.0-0.1) K/uL Nucleated RBC % 0.0 /100WBC Nucleated RBCs # 0 K/uL ESR (0-19) mm/hr INR 0.97 APTT 25.9 (18.6-31.3) SEC Sodium 145 (136-148) mmol/L Potassium 4.2 (3.5-5.1) mmol/L Chloride 109 H (98-107) mmol/L Carbon Dioxide 25.7 (21.0-32.0) mmol/L BUN 16 (7.0-18.0) mg/dL Creatinine 1.3 (0.8-1.3) mg/dL Est Cr Clr Drug Dosing TNP Estimated GFR (MDRD) 55.4 ml/min Glucose 127 H (74-106) mg/dL Hemoglobin A1c (4.5-6.2) % Calcium 8.6 (8.5-10.1) mg/dL Total Bilirubin 0.7 (0.2-1.0) mg/dL AST 17 (15-37) IU/L ALT 26 (14-63) IU/L Alkaline Phosphatase 75 (46-116) U/L Troponin I < 0.050 (0.000-0.056) ng/mL C-Reactive Protein (0.00-0.90) mg/dL Total Protein 7.1 (6.4-8.2) g/dL Albumin 3.7 (3.4-5.0) g/dL Globulin 3.4 (2.6-4.0) g/dL Albumin/Globulin Ratio 1.1 (0.9-1.6) Triglycerides (0-200) mg/dL Cholesterol (50-200) mg/dL LDL Cholesterol, Calc (60-180) mg/dL VLDL Cholesterol (5-55) mg/dL HDL Cholesterol (40-60) mg/dL Cholesterol/HDL Ratio (3.3-6.0) TSH 3rd Generation 3.12 (0.36-3.74) uIU/mL 12/15/18 12/15/18 12/15/18 Range/Units 07:58 07:58 07:58 WBC (4.0-11.0) K/uL RBC (4.50-5.90) M/uL Hgb (13.0-17.0) g/dL Hct (38.0-50.0) % MCV (80.0-98.0) fL MCH (27.0-32.0) pg MCHC (31.0-37.0) g/dL RDW Std Deviation (28.0-62.0) fl RDW Coeff of Yue (11.0-15.0) % Plt Count (150-400) K/uL MPV (7.40-12.00) fL Neut % (Auto) (48.0-80.0) % Lymph % (Auto) (16.0-40.0) % [place] % (Auto) (0.0-15.0) % Eos % (Auto) (0.0-7.0) % Baso % (Auto) (0.0-1.5) % Neut # (Auto) (1.4-5.7) K/uL Lymph # (Auto) (0.6-2.4) K/uL [place] # (Auto) (0.0-0.8) K/uL Eos # (Auto) (0.0-0.7) K/uL Baso # (Auto) (0.0-0.1) K/uL Nucleated RBC % /100WBC Nucleated RBCs # K/uL ESR 3 (0-19) mm/hr INR APTT (18.6-31.3) SEC Sodium (136-148) mmol/L Potassium (3.5-5.1) mmol/L Chloride (98-107) mmol/L Carbon Dioxide (21.0-32.0) mmol/L BUN (7.0-18.0) mg/dL Creatinine (0.8-1.3) mg/dL Est Cr Clr Drug Dosing Estimated GFR (MDRD) ml/min Glucose (74-106) mg/dL Hemoglobin A1c 5.9 (4.5-6.2) % Calcium (8.5-10.1) mg/dL Total Bilirubin (0.2-1.0) mg/dL AST (15-37) IU/L ALT (14-63) IU/L Alkaline Phosphatase (46-116) U/L Troponin I (0.000-0.056) ng/mL C-Reactive Protein (0.00-0.90) mg/dL Total Protein (6.4-8.2) g/dL Albumin (3.4-5.0) g/dL Globulin (2.6-4.0) g/dL Albumin/Globulin Ratio (0.9-1.6) Triglycerides 126 (0-200) mg/dL Cholesterol 135 (50-200) mg/dL LDL Cholesterol, Calc 79 (60-180) mg/dL VLDL Cholesterol 25 (5-55) mg/dL HDL Cholesterol 31 L (40-60) mg/dL Cholesterol/HDL Ratio 4.4 (3.3-6.0) TSH 3rd Generation (0.36-3.74) uIU/mL 12/15/18 Range/Units 07:58 WBC (4.0-11.0) K/uL RBC (4.50-5.90) M/uL Hgb (13.0-17.0) g/dL Hct (38.0-50.0) % MCV (80.0-98.0) fL MCH (27.0-32.0) pg MCHC (31.0-37.0) g/dL RDW Std Deviation (28.0-62.0) fl RDW Coeff of Yue (11.0-15.0) % Plt Count (150-400) K/uL MPV (7.40-12.00) fL Neut % (Auto) (48.0-80.0) % Lymph % (Auto) (16.0-40.0) % [place] % (Auto) (0.0-15.0) % Eos % (Auto) (0.0-7.0) % Baso % (Auto) (0.0-1.5) % Neut # (Auto) (1.4-5.7) K/uL Lymph # (Auto) (0.6-2.4) K/uL [place] # (Auto) (0.0-0.8) K/uL Eos # (Auto) (0.0-0.7) K/uL Baso # (Auto) (0.0-0.1) K/uL Nucleated RBC % /100WBC Nucleated RBCs # K/uL ESR (0-19) mm/hr INR APTT (18.6-31.3) SEC Sodium (136-148) mmol/L Potassium (3.5-5.1) mmol/L Chloride (98-107) mmol/L Carbon Dioxide (21.0-32.0) mmol/L BUN (7.0-18.0) mg/dL Creatinine (0.8-1.3) mg/dL Est Cr Clr Drug Dosing Estimated GFR (MDRD) ml/min Glucose (74-106) mg/dL Hemoglobin A1c (4.5-6.2) % Calcium (8.5-10.1) mg/dL Total Bilirubin (0.2-1.0) mg/dL AST (15-37) IU/L ALT (14-63) IU/L Alkaline Phosphatase (46-116) U/L Troponin I (0.000-0.056) ng/mL C-Reactive Protein 0.40 (0.00-0.90) mg/dL Total Protein (6.4-8.2) g/dL Albumin (3.4-5.0) g/dL Globulin (2.6-4.0) g/dL Albumin/Globulin Ratio (0.9-1.6) Triglycerides (0-200) mg/dL Cholesterol (50-200) mg/dL LDL Cholesterol, Calc (60-180) mg/dL VLDL Cholesterol (5-55) mg/dL HDL Cholesterol (40-60) mg/dL Cholesterol/HDL Ratio (3.3-6.0) TSH 3rd Generation (0.36-3.74) uIU/mL Med Orders - Current: Current Medications Acetaminophen (Tylenol) 650 mg PO Q4H PRN PRN Reason: Pain (Mild 1-3)/fever Aspirin (Aspirin) 81 mg PO DAILY [facility] Atorvastatin Calcium (Lipitor) 40 mg PO BEDTIME [facility] Morphine Sulfate (Morphine) 2 mg IVPUSH Q2H PRN PRN Reason: Pain (severe 7-10) Stop: 12/16/18 09:16 Ondansetron HCl (Zofran Odt) 4 mg PO Q4H PRN PRN Reason: nausea, able to take PO Ondansetron HCl (Zofran) 4 mg IVPUSH Q4H PRN PRN Reason: Nausea Sodium Chloride (Saline Flush) 10 ml FLUSH ASDIRECTED PRN PRN Reason: Keep Vein Open Sodium Chloride (Saline Flush) 2.5 ml FLUSH ASDIRECTED PRN PRN Reason: Keep Vein Open Sodium Chloride (Normal Saline) 10 ml IV ASDIRECTED PRN PRN Reason: IV Use Discontinued Medications Aspirin (Aspirin) 325 mg PO ONETIME ONE Stop: 12/15/18 09:18 Last Admin: 12/15/18 09:44 Dose: 325 mg
[2018-12-15] MEDS ORDERED: atorvaSTATin 40 MG Tab PO SCH (21:00)
[2018-12-16] MEDS ORDERED: Aspirin 81 MG Tab.Chew PO SCH (09:00)
== END 2018-12-15 18:45 | disposition home or self-care (01) ==
LOC: MW.ED 07:13 → MW.MS 08:55
PROVIDERS: ADMIT Student in an Organized Health Care Education/Training Program; ATTEND Student in an Organized Health Care Education/Training Program
DX: H53.2 Diplopia (principal); H53.8 Other visual disturbances; I10 Essential (primary) hypertension; E78.00 Pure hypercholesterolemia, unspecified; F17.200 Nicotine dependence, unspecified, uncomplicated; Z79.899 Other long term (current) drug therapy
CPT/HCPCS: 36415; 70450; 70544; 70547; 70551; 80053; 80061; 83036; 84443; 84484; 85025; 85610; 85652; 85730; 86140; 93005; 93306; A9270; 99284; 99285-25; G0378

== ENCOUNTER 2022-12-24 09:57 | Day surgery (SDC) | payer MEDICARE, OTHER ==
[~2022-12-24 09:57] MED LIST: Lactated Ringers 1,000 ML IV SCH
[2022-12-24] MEDS ORDERED: propofoL 50 ML ONE (10:50)
[2022-12-24] MEDS ORDERED: Propofol 200 MG/20 ML SDV ONE (13:42)
== END 2022-12-24 15:02 | disposition home or self-care (01) ==
LOC: MW.SDS 09:57
PROVIDERS: ATTEND Surgery
DX: Z12.11 Encounter for screening for malignant neoplasm of colon (principal); D12.0 Benign neoplasm of cecum; D12.8 Benign neoplasm of rectum; D12.6 Benign neoplasm of colon, unspecified; K63.5 Polyp of colon; K57.30 Diverticulosis of large intestine without perforation or abscess without bleeding; E11.9 Type 2 diabetes mellitus without complications; I10 Essential (primary) hypertension; E78.00 Pure hypercholesterolemia, unspecified; F17.210 Nicotine dependence, cigarettes, uncomplicated; Z79.82 Long term (current) use of aspirin; Z79.899 Other long term (current) drug therapy
CPT/HCPCS: 45380; 45385; J2704; J7120; 00811; 88305